=== PATIENT | female | born 1965 | race Caucasian/White ===

== ENCOUNTER → 2016-12-22 | Outpatient (CLI) | payer OTHER ==
--- NOTE | ~2016-12-22 | CR58 ---
[facility]. [facility] A Service of [facility] & [facility] RADIOLOGY TEXT RESULTS PATIENT: DELFINA HESTER LOCATION: [facility] : 63 UNIT #: [id number] AGE: [address]: Ml Portillo SEX: F ORDER DR: [id number] [address] [address] [id number] O MR#: [id number] Acc #: [id number] NAME: DELFINA HESTER : 1965 SEX: F STUDY DATE/TIME: 12/22/2016 10:52 UNIT: [facility] ROOM: STUDY DESCRIPTION: CR Cervical Spine 2 or 3 Views Attending Physician: Ml Portillo A.P.R.N. Referring Physician: Ml Portillo A.P.R.N. Ordering Physician: Ml Portillo A.P.R.N. Primary Care Physician: Ml Portillo A.P.R.N. MEDICAL IMAGING REPORT This report is preliminary unless electronic signature is present. EXAM Cervical spine series. HISTORY No known trauma. Posterior neck pain toward the left over the past 2 weeks. TECHNIQUE 3 views of the cervical spine were obtained. FINDINGS Alignment is satisfactory. Disc space heights are preserved. Anterior osteophytes are seen at C4-5 and C5-6. Posterior facets are intact. IMPRESSION Mild degenerative disc disease with anterior osteophyte formation C4-5 and C5-6. Otherwise negative. Dictated by... Mil Benoit M.D. THIS IS AN ELECTRONICALLY VERIFIED REPORT Mil Benoit M.D. at 12/23/2016 7:34 AM ANTHONY/patricia TD: 12/22/2016 18:33 JOB #: [id number] MEDICAL IMAGING REPORT Page 1 of 1
== END | disposition home or self-care (01) ==
LOC: SRAD 10:33
DX: M54.2 Cervicalgia (principal); M50.321 Other cervical disc degeneration at C4-C5 level; M50.322 Other cervical disc degeneration at C5-C6 level; M25.78 Osteophyte, vertebrae
CPT/HCPCS: 72040